=== PATIENT | male | born 1990 | race Caucasian/White ===

== ENCOUNTER → 2016-12-26 | Outpatient (REF) | payer BC | LOC: M LAB REF 10:33 | PROVIDERS: ATTEND Physician Assistant | DX: J02.9 Acute pharyngitis, unspecified (principal) ==

== ENCOUNTER 2017-08-25 14:41 | Emergency (ER) | payer OTHER, BC | END 2017-08-26 01:04 | disposition home or self-care (01) | LOC: M ED 14:41 | DX: S93.402A Sprain of unspecified ligament of left ankle, initial encounter (principal); X50.9XXA Other and unspecified overexertion or strenuous movements or postures, initial encounter; Y92.59 Other trade areas as the place of occurrence of the external cause; Y99.0 Civilian activity done for income or pay | CPT/HCPCS: 99281 ==

== ENCOUNTER → 2019-03-06 | Outpatient (REF) | payer OTHER | LOC: M SFHCCLAY 09:19 | PROVIDERS: ATTEND Family Medicine | DX: R39.198 Other difficulties with micturition (principal) ==

== ENCOUNTER → 2019-03-17 | Outpatient (REF) | payer OTHER ==
[2019-03-17 14:43] LABS: APPEARANCE, URINE CLEAR (CLEAR); BACTERIA, URINE AUTO NEGATIVE (NEGATIVE); BILIRUBIN, URINE AUTO NEGATIVE (NEGATIVE); BLOOD, URINE BLOOD NEGATIVE (NEGATIVE); COLOR, URINE YELLOW (YELLOW); GLUCOSE, URINE (UA) AUTO NEGATIVE (NEGATIVE); KETONE, URINE AUTO NEGATIVE (NEGATIVE); LEUKOCYTE ESTERASE, URINE AUTO NEGATIVE (NEGATIVE); MUCUS, URINE SMALL (NEGATIVE); NITRITE, URINE AUTO NEGATIVE (NEGATIVE); PROTEIN, URINE AUTO NEGATIVE (NEGATIVE); RBC, URINE AUTO 0 /HPF (0-3); SPECIFIC GRAVITY URINE AUTO 1.024 (1.002-1.035); SQUAMOUS EPITHELIAL CELL UR AU 0 /HPF (0-6); UROBILINOGEN, URINE AUTO 0.2 mg/dL (0.0-2.0); WBC, URINE AUTO 0 /HPF (0-3)
== END ==
LOC: M SMT 13:27
PROVIDERS: ATTEND Nurse Practitioner Women's Health
DX: N39.43 Post-void dribbling (principal)

== ENCOUNTER → 2020-03-08 | Outpatient (CLI) | payer OTHER, BC ==
--- NOTE | 2020-03-08 11:20 | REP ---
INDICATION: M79.671, RIGHT FOOT PAIN. COMPARISON: None. TECHNIQUE: Four views. FINDINGS: Four views of the right foot demonstrate overall normal mineralization.. No fracture or subluxation is seen. There is a calcific density in the plantar soft tissues adjacent to the medial sesamoid at the 1st MTP joint. aa apparent soft tissue calcification focus. No erosive changes seen. IMPRESSION: There is a faint soft tissue calcification in the plantar soft tissues at the distal end of the 1st metatarsal adjacent to the medial sesamoid. Otherwise negative radiographs of the right foot.. <Electronically signed by Jose Guadalupe Awad > 03/08/20 [id number]
== END ==
LOC: M CLY 10:19
PROVIDERS: ATTEND Physician Assistant
DX: M79.671 Pain in right foot (principal)

== ENCOUNTER → 2023-08-11 | Outpatient (REF) | payer BC, OTHER | LOC: M LABSMT 08:45 | PROVIDERS: ATTEND Urology | DX: Z30.2 Encounter for sterilization (principal) ==

== ENCOUNTER → 2023-08-30 | Outpatient (CLI) | payer BC, OTHER ==
[2023-08-30 13:14] LABS: BASO % 0.1 % (0.0-1.0); EOS # 0.2 10^3/uL (0.0-0.5); HEMATOCRIT 45.2 % (42.0-52.0); HEMOGLOBIN 15.2 g/dl (13.5-17.5); LYMPH # 2.2 10^3/uL (1.5-5.0); LYMPH % 27.7 % (24.0-44.0); MEAN CORPUSCULAR HEMOGLOBIN 27.9 pg (27.0-33.0); MEAN CORPUSCULAR HGB CONC 33.6 g/dl (32.0-36.5); MEAN CORPUSCULAR VOLUME 83.1 fl (80.0-96.0); MONO # 0.7 10^3/uL (0.0-0.8); MONO % 8.2 % (2.0-8.0); NEUTROPHILS # 4.9 10^3/uL (1.5-8.5); NEUTROPHILS % 60.5 % (36.0-66.0); PLATELET COUNT, AUTOMATED 332 10^3/uL (150-450); RED BLOOD COUNT 5.44 10^6/uL (4.30-6.10); WHITE BLOOD COUNT 8.1 10^3/uL (4.0-10.0)
[2023-08-30 13:22] LABS: FREE T4 1.07 NG/DL (0.89-1.76); THYROID STIMULATING HORMONE 2.378 uIU/ML (0.55-4.78)
[2023-08-30 13:23] LABS: ALBUMIN 4.4 G/DL (3.2-5.2); ALKALINE PHOSPHATASE 65 U/L (46-116); ALT/SGPT 29 U/L (7.0-40); AST/SGOT 12 U/L (<34); BILIRUBIN,TOTAL 0.9 MG/DL (0.3-1.2); BLOOD UREA NITROGEN 14 MG/DL (9-23); CALCIUM LEVEL 9.7 MG/DL (8.5-10.1); CARBON DIOXIDE LEVEL 30 MMOL/L (20-31); CHLORIDE LEVEL 107 MMOL/L (98-107); CHOLESTEROL LEVEL 178 MG/DL (<200); CHOLESTEROL RISK RATIO 3.67 (<5); CREATININE FOR GFR 0.79 MG/DL (0.70-1.30); GLOMERULAR FILTRATION RATE > 60.0 (>60); GLUCOSE, FASTING 98 MG/DL (60-100); HDL CHOLESTEROL 48.5 MG/DL (>40); LDL CHOLESTEROL 114.3 MG/DL (<100); NON-HDL-C 129.5 MG/DL; POTASSIUM SERUM 4.7 MMOL/L (3.5-5.1); SODIUM LEVEL 142 MMOL/L (136-145); TOTAL PROTEIN 7.6 G/DL (5.7-8.2); TRIGLYCERIDES LEVEL 76 MG/DL (<150)
[2023-08-30 13:25] LABS: TOTAL 25(OH) VITAMIN D 23.1 NG/ML (20.0-100.0)
[2023-08-30 13:26] LABS: VITAMIN B12 LEVEL 524 PG/ML (211-911)
[2023-08-30 13:40] LABS: HEMOGLOBIN A1c 5.3 % (4.0-6.0)
[2023-08-30 13:58] LABS: CREATININE, URINE 260.7 MG/DL; MAU/CREAT RATIO 1.9 MCG/MG (0.0-30.0)
== END ==
LOC: M PLALAB 08:49
PROVIDERS: ATTEND Internal Medicine Hematology
DX: R03.0 Elevated blood-pressure reading, without diagnosis of hypertension (principal)

== ENCOUNTER → 2024-02-22 | Outpatient (CLI) | payer BC, OTHER | LOC: M CLY 08:59 | PROVIDERS: ATTEND Nurse Practitioner Family | DX: R07.89 Other chest pain (principal) ==

== ENCOUNTER → 2024-03-30 | Outpatient (CLI) | payer BC, OTHER | LOC: M SOG 07:45 | PROVIDERS: ATTEND Physician Assistant | DX: M25.561 Pain in right knee (principal) ==

== ENCOUNTER → 2024-03-31 | Outpatient (REF) | payer BC, OTHER ==
[2024-03-31 08:37] LABS: SEMEN APPEARANCE OPAQUE (OPAQUE); SEMEN VISCOSITY LIQUID (LIQUID); SEMEN VOLUME 4.1 ml (2.0-5.0)
[2024-03-31 08:38] LABS: WBC CONCENTRATION <=1 M/ml (<=1 M/ml)
== END ==
LOC: M SMT 08:30
PROVIDERS: ATTEND Urology
DX: Z30.2 Encounter for sterilization (principal)

== ENCOUNTER 2025-02-12 10:55 | Day surgery (SDC) | payer BC, OTHER ==
[~2025-02-12] VITALS: Ht 170.2 cm; Wt 94.8 kg
[2025-02-12] MEDS: LIDOCAINE W/EPINEPHrine 1% 20 ML VIAL XX ONE (13:35)
[2025-02-12] MEDS: SODIUM BICARBONATE 8.4% INJ 50MEQ/50ML VIAL XX ONE (13:35)
[2025-02-12 14:35] VITALS: BP 139/84; TEMP 96.9; O2SAT 99
== END 2025-02-12 14:50 | disposition home or self-care (01) ==
LOC: M SDC 10:55
PROVIDERS: ATTEND Orthopaedic Surgery Hand Surgery
DX: M65.312 Trigger thumb, left thumb (principal)